=== PATIENT | male | born 1965 | race Caucasian/White ===

== ENCOUNTER 2021-02-13 23:26 | Emergency (ER) | payer MEDICARE, SELFPAY ==
[2021-02-13 23:27] VITALS: BP 194/104; PULSE 91; RESP 16; TEMP 36; O2SAT 99; BMI 40.6
--- NOTE | 2021-02-13 23:31 | RAD_ITS ---
STUDY: X-RAY CHEST REASON FOR EXAM: Male, 55 years old. chest pain TECHNIQUE: AP COMPARISON: 08/07/2011 FINDINGS: The lungs are clear and expanded. There is no demonstrated pleural abnormality. Normal size heart. Normal mediastinum and adalberto. Normal visualized pulmonary arteries. Normal visualized aortic arch and descending thoracic aorta. Normal visualized thoracic spine. Normal visualized ribs, clavicles, and shoulders. There is no demonstrated abnormality of the visualized soft tissue structures of the upper abdomen. RAD/Chest 1 View (Portable) IMPRESSION: Negative x-ray examination of the chest. Electronically Signed: Blake Hidalgo MD at 0:03 EDT Tel , Service support ,
--- NOTE | 2021-02-13 23:31 | EKG12_ITS ---
Test Reason : DYSRHYTHMIA Blood Pressure : / mmHG Vent. Rate : 081 BPM Atrial Rate : 081 BPM P-R Int : 178 ms QRS Dur : 112 ms QT Int : 430 ms P-R-T Axes : 081 054 026 degrees QTc Int : 499 ms Normal sinus rhythm Normal ECG Confirmed by WILMAR BLEVINS, CHICO ([id number]), fan mail editor MITCH HERRERA ([id number]) on 02/15/2021 9:31:15 AM Referred By: CL Confirmed By:ALICJA URBAN MD
--- NOTE | 2021-02-13 23:31 | ED.VIS.GEN ---
History of Present Illness Chief Complaint: Palpitations Informant: Patient Narrative: 55-year-old male with past medical history of hypertension presents with concern for stations. States they have been present for approximately 35 years. States that he knows of they are PVCs. States that they are more frequent this evening. Denies any chest pain, shortness of breath, fever, chills, cough, diaphoresis. Past Medical History - Allergies and Home Meds Allergies/Adverse Reactions: Allergies Penicillins Allergy (Verified 02/13/21 23:34) Rash Primary Care Physician: Carl Alex MD [Primary Care Provider] - Prior records reviewed: Yes Past Medical History: - - HTN Surgical History: noncontributory Lives: Alone Smoking Status: Never smoker Alcohol: Occasional Drugs: Marijuana Review of Systems General: Denies: Chills, Fever, Sweats Eyes: Denies: Visual changes - bilaterally, Diplopia ENT: Denies: Rhinorrhea, Sore throat Cardiovascular: Reports: Palpitations. Denies: Chest pain Respiratory: Denies: Dyspnea, Cough, Dyspnea on exertion Gastrointestinal: Denies: Abdominal pain, Nausea, Vomiting, Diarrhea, Melena, Hematochezia Genitourinary: Denies: Dysuria, Hematuria, Frequency Musculoskeletal: Denies: Back pain, Extremity Pain Skin: Denies: Rash, Wounds Neurological: Denies: Headache, Weakness, Numbness Physical Exam Vital Signs/Narrative: Vital Signs Temp Pulse Resp BP Pulse Ox 02/13/21 23:27 96.8 F L 91 16 194/104 H 99 Inital Vital Signs reviewed: Yes General: Well nourished, Well developed, No Acute Distress Head: Normocephalic, Atraumatic Eyes: Perrl, EOMI ENT: Moist mucous membranes, No rhinorrhea Neck: Supple, Nontender Cardiovascular: Regular rate, Regular rhythm, No murmurs Respiratory: No distress, CTA bilaterally, Chest nontender Abdomen: Soft, Nontender, Nondistended, Normal bowel sounds Back: Nontender, Normal Inspection Extremities: Nontender, No edema Skin: Normal color, No rash Neurological: Alert, Oriented x3, Cranial nerves II-XII grossly intact, Normal Strength, Normal Sensation Psychological: Normal affect, Normal Mood Diagnostic/Tx/Re-eval Chest X-Ray - ED: 1 View, Read by ED Physician, Read by Radiologist Clinical Impression(s) from Imaging Studies Chest X-Ray 03/24/21 23:31 IMPRESSION: Negative x-ray examination of the chest. Electronically Signed: Blake Hidalgo MD at 0:03 EDT Tel , Service support , Laboratory Data 02/13/21 02/13/21 23:45 23:45 WBC 8.4 RBC 5.28 Hgb 15.6 Hct 45.9 MCV 86.9 MCH 29.5 MCHC 34.0 RDW Std Deviation 41.8 RDW Coeff of Carolyn 13.2 Plt Count 209 MPV 9.9 Immature Gran % (Auto) 0.600 Neut % (Auto) 64.8 Lymph % (Auto) 23.8 [place] % (Auto) 8.9 Eos % (Auto) 1.4 Baso % (Auto) 0.5 Absolute Neuts (auto) 5.4 Absolute Lymphs (auto) 1.99 Nucleated RBC % 0 Sodium 137 Potassium 3.5 Chloride 101 Carbon Dioxide 26.0 Anion Gap 10 BUN 14 Creatinine 0.90 Estim Creat Clear Calc 94.63 Est GFR (MDRD) Af Amer 113 Est GFR (MDRD) Non-Af 93 BUN/Creatinine Ratio 15.6 Glucose 189 H Calcium 9.0 Magnesium 2.4 Troponin I < 0.015 - Rhythm Strip Rhythm Strip: Sinus Rhythm Rate: 81 Ectopy: PVC(s) - EKG Initial EKG Interpretation: Sinus Rhythm - 81 bpm. NV interval of 178 ms. QTC of 499 ms. No evidence of ST elevation or depression at this time. - Medical Decision Making Patient appears well and nontoxic. Vital signs within normal limits. Chest x-ray interpreted by myself shows no evidence of infiltrate or cardiomegaly. Radiology concurs. EKG shows no acute ischemia. Troponin negative. No electrolyte abnormality. Patient's blood pressure initially elevated but was redo spontaneously without medication. Patient will be given cardiology follow-up given he is having more frequent PVCs. Patient is already on metoprolol. Asked return for new or worsening symptoms. Patient agreeable and stable at time of discharge. Impression: 1. PVCs 2. Palpitations ED Disposition - Plan for ED Patient: Disposition: Home or Assisted Living Instructions: Premature Ventricular Contractions Referrals: Carl Alex MD [Primary Care Provider] - 2 Days Hunter Copeland MD [STAFF PHYSICIAN] - As Needed
[2021-02-13 23:53] LABS: Absolute Lymphocyte Count 1.99 X10^3/uL (0.83-4.51); Absolute Neutrophil Count 5.4 X10^3/uL (2.0-7.7); Basophil# 0.04 X10^3/uL; Basophil% 0.5 % (0-1); Eosinophil# 0.12 X10^3/uL; Eosinophils% 1.4 % (0-5); Hematocrit 45.9 % (40-54); Hemoglobin 15.6 g/dL (13.0-16.5); Lymphocyte # 1.99 X10^3/ul (4.0); Lymphocyte % 23.8 % (19-41); Mean Corpuscular Hgb 29.5 pg (27.0-32.0); Mean Corpuscular Volume 86.9 fL (80-94); Mean Platelet Vol. 9.9 fl (6.2-12.0); Monocyte# 0.74 X10^3/uL; Monocyte% 8.9 % (0-10); NRBC Flagged by Analyzer 0 % (0-5); Neutrophil # 5.41 X10^3/uL (2.7-7.7); Neutrophil % 64.8 % (47-70); Platelet Count 209 K/mm3 (150-450); RBC Distribution Width CV 13.2 % (11.6-14.6); RBC Distribution Width SD 41.8 fl (35.1-43.9); Red Blood Count 5.28 M/mm3 (4.6-6.2); White Blood Count 8.4 K/mm3 (4.4-11.0)
[2021-02-14 00:13] LABS: Anion Gap 10 (5-15); BUN 14 mg/dL (7-18); BUN/Creat Ratio 15.6 RATIO (10-20); Chloride 101 mmol/L (98-107); EST Glomerular Filtration Rate 93 mL/min (>60); Est Glom Filt Rate - Afr Amer 113 mL/min (>60); Estimated Creatinine Clearance 94.63 ml/min; Glucose 189 mg/dL (74-106); Magnesium 2.4 mg/dL (1.6-2.6); Potassium 3.5 mmol/L (3.5-5.1); Sodium Level 137 mmol/L (136-145)
[2021-02-14 00:27] VITALS: BP 134/76; PULSE 59; RESP 17; O2SAT 97
== END 2021-02-14 00:32 | disposition home or self-care (01) ==
PROVIDERS: Emergency Provider Emergency Medicine; PCP Internal Medicine
DX: I49.3 Ventricular premature depolarization (principal)
CPT/HCPCS: 71045; 80048; 83735; 84484; 85025; 93005; 99283; A4216